=== PATIENT | male | born 1975 | race Caucasian/White ===

== ENCOUNTER 2022-11-29 17:49 | Outpatient (CLI) | payer OTHER | END 2022-11-29 17:50 | disposition critical access hospital (66) | LOC: EMS 17:49 | DX: M54.50 Low back pain, unspecified (principal); V49.40XA Driver injured in collision with unspecified motor vehicles in traffic accident, initial encounter; Y92.413 State road as the place of occurrence of the external cause | CPT/HCPCS: A0425; A0429 ==

== ENCOUNTER 2022-11-29 18:16 | Emergency (ER) | payer OTHER ==
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
[2022-11-29 19:27] VITALS: BP 151/89
== END 2022-11-29 19:22 | disposition home or self-care (01) ==
LOC: ED 18:16
DX: S32.040A Wedge compression fracture of fourth lumbar vertebra, initial encounter for closed fracture (principal); S20.212A Contusion of left front wall of thorax, initial encounter; V59.49XA Driver of pick-up truck or van injured in collision with other motor vehicles in traffic accident, initial encounter; Y93.89 Activity, other specified; Y92.410 Unspecified street and highway as the place of occurrence of the external cause; R03.0 Elevated blood-pressure reading, without diagnosis of hypertension
CPT/HCPCS: 99283